=== PATIENT | male | born 1990 ===

== ENCOUNTER 2019-08-14 18:46 | Emergency (ER) | payer SELFPAY ==
[~2019-08-14] VITALS: Ht 170.2 cm; Wt 84.9 kg
[2019-08-14] MEDS ORDERED: KETOROLAC 30 MG/1 ML IM ONE (19:30)
[2019-08-14] MEDS ORDERED: ACETAMINOPHEN 500 MG TABLET PO ONE (19:30)
[2019-08-14] MEDS ORDERED: KETOROLAC 30 MG/1 ML ONE (20:13)
[2019-08-14] MEDS ORDERED: ACETAMINOPHEN 500 MG TABLET ONE (20:13)
[2019-08-14 20:37] VITALS: BP 124/74
== END 2019-08-14 20:40 | disposition home or self-care (01) ==
LOC: ED 19:30
DX: S22.32XA Fracture of one rib, left side, initial encounter for closed fracture (principal); V22.4XXA Motorcycle driver injured in collision with two- or three-wheeled motor vehicle in traffic accident, initial encounter; Y93.89 Activity, other specified; Y92.410 Unspecified street and highway as the place of occurrence of the external cause; Y99.8 Other external cause status
CPT/HCPCS: 71045; 73030; 93005; 96372; 99283; J1885